=== PATIENT | male | born 1985 | race Caucasian/White ===

== ENCOUNTER 2016-07-26 04:21 | Emergency (ER) | payer SELFPAY ==
[~2016-07-26] VITALS: Ht 182.9 cm; Wt 96.5 kg
[2016-07-26 04:26] VITALS: Ht 182.9 cm; Wt 96.5 kg
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
[2016-07-26 06:05] VITALS: PULSE 88; RESP 20; TEMP 98.9
== END 2016-07-26 06:00 | disposition home or self-care (01) ==
LOC: FTE 04:21
DX: S01.81XA Laceration without foreign body of other part of head, initial encounter (principal); Y04.0XXA Assault by unarmed brawl or fight, initial encounter